=== PATIENT | female | born 1990 | race American Indian/Alaskan Native ===

== ENCOUNTER 2016-06-26 13:41 | Outpatient (CLI) | payer BC, MEDICAID ==
[2016-06-26] MEDS ORDERED: LACTATED RINGERS 500 ML IV ONE (13:54)
[2016-06-26 14:04] LABS: Bilirubin,Urine NEG (Negative); Blood,Urine NEG (Negative); Ketones,Urine TR mg/dL (Negative); Leukocyte Esterase,Urine TR (Negative); Mucus,Urine FEW /HPF; Nitrite,Urine NEG (Negative); Protein,Urine <15 mg/dL mg/dL (Negative); Urobilinogen,Urine < 2.0 mg/dL (<2.0)
[2016-06-26 14:53] VITALS: BP 119/81
== END 2016-06-26 14:33 | disposition home or self-care (01) ==
LOC: TRG 13:41
PROVIDERS: ATTEND Obstetrics & Gynecology
DX: O47.03 False labor before 37 completed weeks of gestation, third trimester (principal); Z3A.35 35 weeks gestation of pregnancy
CPT/HCPCS: 59025; 81001

== ENCOUNTER 2016-06-29 07:37 | Outpatient (CLI) | payer BC, MEDICAID ==
[2016-06-29] MEDS ORDERED: LACTATED RINGERS 500 ML IV ONE (08:57)
[2016-06-29 09:23] VITALS: BP 136/92
[2016-06-29 10:46] LABS: Bacteria,Urine 1+ /HPF (Negative); Bilirubin,Urine NEG (Negative); Blood,Urine NEG (Negative); Ketones,Urine NEG (Negative); Leukocyte Esterase,Urine TR (Negative); Nitrite,Urine NEG (Negative); Protein,Urine <15 mg/dL mg/dL (Negative); Urobilinogen,Urine < 2.0 mg/dL (<2.0)
--- NOTE | 2016-06-29 11:46 | Event Note ---
Date: 06/29/16 no active leaking noted from vagina, GHADA 10cm. Spec exam: neg pooling. Copious amounts of white discharge noted. Neg nitrazine, Neg fern, + clue cells. plan for d/c home and keep next scheduled appointment. rx flagyl sent to [facility] from office.
--- NOTE | 2016-06-29 13:54 | Ultrasound Report ---
ULTRASOUND OB LIMITED History: well being Technique: Transabdominal ultrasound with Doppler interrogation. Gestation: Single Position: Cephalic Amniotic Fluid: Normal GHADA = 10.6 cm Heart Rate: 138 BPM
== END 2016-06-29 11:30 | disposition home or self-care (01) ==
LOC: TRG 07:37
PROVIDERS: ATTEND Obstetrics & Gynecology
DX: O47.03 False labor before 37 completed weeks of gestation, third trimester (principal); Z3A.36 36 weeks gestation of pregnancy
CPT/HCPCS: 59025; 76815; 81001

== ENCOUNTER 2017-11-05 11:38 | Emergency (ER) | payer OTHER, MEDICAID ==
[2017-11-05 11:44] VITALS: BP 125/81
[2017-11-05] MEDS ORDERED: MOTRIN PO ONE (15:19)
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
== END 2017-11-05 17:06 | disposition home or self-care (01) ==
LOC: ED 11:38
DX: S16.1XXA Strain of muscle, fascia and tendon at neck level, initial encounter (principal); S29.012A Strain of muscle and tendon of back wall of thorax, initial encounter; E11.9 Type 2 diabetes mellitus without complications; V49.49XA Driver injured in collision with other motor vehicles in traffic accident, initial encounter; Y93.89 Activity, other specified; Y92.89 Other specified places as the place of occurrence of the external cause; Y99.8 Other external cause status
CPT/HCPCS: 72040; 99283